=== PATIENT | female | born 1970 | race African-American/Black ===

== ENCOUNTER 2019-03-04 19:37 | Emergency (ER) | payer OTHER, MEDICAID ==
[~2019-03-04] VITALS: Ht 165.1 cm; Wt 68.0 kg
[2019-03-04 19:58] VITALS: BP 199/95
--- NOTE | 2019-03-04 19:59 | NUR ---
ER Nurse Note: Pt came from home c/o nose bleed for 3 days. Pt stated no trauma to nose, acute onset. Last nose bleed at 1430, saturated 1 tissue. Currently not bleeding from nose, VSS, no signs of distress. Will endorse to primary RN.
[2019-03-04] MEDS ORDERED: BACITRACIN15 GM TOPIC (20:26)
[2019-03-04 20:30] VITALS: BP 199/95
[2019-03-04] MEDS ORDERED: Bacitracin Oint UD TOPIC ONE (20:30)
--- NOTE | 2019-03-04 20:30 | NUR ---
ED Nurse Note:ER DISCHARGE NOTE: Patient is cleared to be discharged per ERMD, pt is aox4, on room air, with stable vital signs. pt was given dc and prescription instructions, pt was able to verbalize understanding, pt id band removed without complications. pt is able to ambulate with steady gait. pt took all belongings.
--- NOTE | 2019-03-04 22:01 | Emergency Room Report ---
History of Present Illness General Chief Complaint: Nosebleed Source: Patient Present Illness HPI 48-year-old female presents ED for evaluation. Patient presenting for evaluation of nosebleed. States she had nosebleed yesterday and 2 episodes today. States they resolved on their own after applying some pressure. Denies any active bleeding. Denies any pain. Did not take any blood thinners. No other aggravating relieving factors. Denies any other associated symptoms Allergies: Coded Allergies: No Known Allergies (Unverified , 03/04/19) Patient History Past Medical History: none Past Surgical History: none Pertinent Family History: none Social History: Denies: smoking, alcohol use, drug use Last Menstrual Period: 2018 Now: No Immunizations: UTD Reviewed Nursing Documentation: PMH: Agreed; PSxH: Agreed Nursing Documentation-PMH Past Medical History: No Stated History Review of Systems All Other Systems: negative except mentioned in HPI Physical Exam Vital Signs Date Time Temp Pulse Resp B/P (MAP) Pulse Ox O2 Delivery O2 Flow Rate FiO2 03/04/19 19:50 97.5 85 18 199/95 (129) 98 Room Air Sp02 EP Interpretation: reviewed, normal General Appearance: no apparent distress, alert, GCS 15, non-toxic Head: normocephalic Eyes: bilateral eye normal inspection, bilateral eye PERRL ENT: hearing grossly normal, normal pharynx, no angioedema, normal voice, other - dried blood anterior nares. no active bleeding Neck: normal inspection Respiratory: normal inspection Cardiovascular #1: normal inspection Gastrointestinal: normal inspection Rectal: deferred Genitourinary: no CVA tenderness Musculoskeletal: normal inspection Neurologic: alert, oriented x3, responsive, motor strength/tone normal, sensory intact, speech normal Psychiatric: normal inspection Skin: normal inspection Lymphatic: normal inspection Medical Decision Making Diagnostic Impression: Primary Impression: Epistaxis ER Course 48 yo F presents with nose bleed x 2 days Differential-anterior epistaxis, posterior epistaxis, coagulopathy Patient placed on stretcher. After initial history, physical exam reveals middle aged female in no acute distress. dried blood in bilateral anterior nares. No active bleeding. Discussed findings with patient. Patient can be safely discharged home. Bacitracin applied in both nostrils. Will provide ENT referrals. Diagnoses-epistaxis Stable and discharged to home with prescription for bacitacin. Followup with ENT. Return to ED if symptoms recur or worsen Last Vital Signs Date Time Temp Pulse Resp B/P (MAP) Pulse Ox O2 Delivery O2 Flow Rate FiO2 03/04/19 20:30 97.5 84 18 199/95 98 Room Air Status: improved Disposition: HOME, SELF-CARE Condition: Stable Scripts Bacitracin (Bacitracin) 28.4 Gm Oint...g. 1 APPLIC TOPIC THREE TIMES A DAY, #28.4 GM Prov: Jordan Vivar MD 03/04/19 Referrals: Al Peguero MD Patient Instructions: Nosebleed, [id number] Jordan Vivar MD Mar 04, 2019 22:00
== END 2019-03-04 20:30 | disposition home or self-care (01) ==
LOC: EMR 20:00
DX: R04.0 Epistaxis (principal)
CPT/HCPCS: 99282

== ENCOUNTER 2019-11-12 14:29 | Emergency (ER) | payer MEDICAID, OTHER ==
[~2019-11-12] VITALS: Ht 162.6 cm; Wt 97.5 kg
[~2019-11-12 14:29] MED LIST: BACITRACIN15 GM TOPIC
[2019-11-12 14:43] VITALS: BP 187/123
--- NOTE | 2019-11-12 14:44 | NUR ---
ED Nurse Note: Patient walked in to ER from home due to high blood pressure and headache 04/17. pt did not take hypertensive medication for 2 weeks and blood pressure has been over 200mmHg since then. pt aao x4 and ambulatory. skin clean and intact. calm and cooperative. pt denied chest pain but headache present. vital signs stable except blood pressure. 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
--- NOTE | 2019-11-12 14:51 | NUR ---
6ED Nurse Note: ERMD at bedside.
[2019-11-12] MEDS ORDERED: Metoclopramide 10mg/10ml Liq NG ONE (15:00)
[2019-11-12] MEDS: DiphenhydrAMINE 50mg/ml Inj IVP ONE ×2 (15:11→15:22)
[2019-11-12] MEDS ORDERED: Metoclopramide 10mg/2ml Inj IVP ONE (15:15)
--- NOTE | 2019-11-12 15:15 | NUR ---
ED Nurse Note: confirmed with DR Breen Regefra 10mg is IVP not NG. medication returned to pharmacy.
--- NOTE | 2019-11-12 15:22 | NUR ---
ED Nurse Note: pt refused Benadryl. ERMD made aware.
--- NOTE | 2019-11-12 15:26 | Emergency Room Report ---
History of Present Illness General Chief Complaint: Hypertension Source: Patient Present Illness HPI The patient presents with hypertension, headache and chest pressure with nausea. She has been undergoing a lot of stress recently. She has been unable to see her doctor. 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 She takes lisinopril 20 mg. Apparently she has not taken it for 3 months. She lost her job 5 years ago. During that time she is gained 40 to 50 pounds and decreased the regular exercise. Headache is rated 7/ 10. It is pounding and occipital without radiation. There is no visual changes. She has been experiencing nausea today also without vomiting but almost vomited. She feels some mild chest pressure on rates this must less intense than the headache. Before she gained the weight and had stress she was able to come off of blood pressure medication completely. There is a family history of hypertension. She states that she occasionally has edema. She denies any calf pain. No fevers, chills, sore throat, palpitations, vomiting, diarrhea, dysuria, abdominal pain, shortness of breath, joint pain, rashes, visual changes, dizziness. Allergies: Coded Allergies: No Known Allergies (Unverified , 03/04/19) Patient History Past Medical History: see triage record Social History: Denies: smoking Social History Narrative Looking for a job at this time Last Menstrual Period: NA Reviewed Nursing Documentation: PMH: Agreed; PSxH: Agreed Nursing Documentation-PM Past Medical History: No History, Except For Hx Hypertension: Yes Review of Systems All Other Systems: negative except mentioned in HPI Physical Exam Vital Signs Date Time Temp Pulse Resp B/P (MAP) Pulse Ox O2 Delivery O2 Flow Rate FiO2 11/12/19 14:32 98.1 95 16 207/94 (131) 97 Room Air Sp02 EP Interpretation: reviewed, normal General Appearance: well appearing, no apparent distress, GCS 15 Head: normocephalic Eyes: bilateral eye normal inspection, bilateral eye PERRL, bilateral eye EOMI ENT: moist mucus membranes Neck: supple Respiratory: lungs clear, normal breath sounds Cardiovascular #1: regular rate, rhythm, no edema Cardiovascular #2: 2+ radial (R) Gastrointestinal: normal inspection, normal bowel sounds, non tender, no mass, non-distended Musculoskeletal: back normal, normal range of motion, gait/station normal Neurologic: alert, motor strength/tone normal, blood bank laboratory technician III-XII nml as tested, oriented x3, sensory intact, cerebellar normal, speech normal Psychiatric: mood/affect normal Skin: no rash, warm/dry Medical Decision Making Diagnostic Impression: Primary Impression: Hypertension Qualified Codes: I10 - Essential (primary) hypertension Additional Impressions: Stress Hypokalemia ER Course Patient presents with high blood pressure, headache and chest pressure with nausea. Differential includes hypertensive urgency, malignant hypertension, stress, migraine, viral syndrome, acute myocardial infarction, angina, renal failure, electrolyte imbalance amongst others. Evaluation with EKG, chest x- ray and labs. The patient will be treated with Reglan and Benadryl and blood pressure repeated. EKG is sinus rhythm with possible left atrial enlargement. Rate 64. Chest x- ray unremarkable. Labs with low potassium. Normal renal function. Normal troponin. Headache resolved after Reglan. Blood pressure slightly elevated but not critically high with treatment of pain and observation. Discussed results and treatment plan with patient. Plan to reduce dose of lisinopril and add Dyazide. No medical emergency at this time. Patient stable for outpatient observation and treatment. Laboratory Tests Test 11/12/19 15:00 11/12/19 16:00 White Blood Count 5.1 K/UL (4.8-10.8) Red Blood Count 4.35 M/UL (4.20-5.40) Hemoglobin 11.4 G/DL (12.0-16.0) L Hematocrit 34.6 % (37.0-47.0) L Mean Corpuscular Volume 80 FL (80-99) Mean Corpuscular Hemoglobin 26.3 PG (27.0-31.0) L Mean Corpuscular Hemoglobin Concent 33.0 G/DL (32.0-36.0) Red Cell Distribution Width 13.8 % (11.6-14.8) Platelet Count 303 K/UL (150-450) Mean Platelet Volume 8.4 FL (6.5-10.1) Neutrophils (%) (Auto) 47.4 % (45.0-75.0) Lymphocytes (%) (Auto) 42.6 % (20.0-45.0) Monocytes (%) (Auto) 6.5 % (1.0-10.0) Eosinophils (%) (Auto) 2.2 % (0.0-3.0) Basophils (%) (Auto) 1.3 % (0.0-2.0) Prothrombin Time 10.8 SEC (9.30-11.50) Prothrombin Time INR 1.0 (0.9-1.1) Activated Partial Thromboplast Time 28 SEC (23-33) Sodium Level 142 MMOL/L (136-145) Potassium Level 3.3 MMOL/L (3.5-5.1) L Chloride Level 105 MMOL/L (98-107) Carbon Dioxide Level 24 MMOL/L (21-32) Anion Gap 13 mmol/L (5-15) Blood Urea Nitrogen 8 mg/dL (7-18) Creatinine 1.0 MG/DL (0.55-1.30) Estimate Glomerular Filtration Rate > 60 mL/min (>60) Glucose Level 88 MG/DL (74-106) Calcium Level 9.3 MG/DL (8.5-10.1) Total Bilirubin 0.4 MG/DL (0.2-1.0) Aspartate Amino Transferase (AST) 21 U/L (15-37) Alanine Aminotransferase (ALT) 35 U/L (12-78) Alkaline Phosphatase 105 U/L (46-116) Total Creatine Kinase 216 U/L (26-308) Troponin I 0.000 ng/mL (0.000-0.056) Pro-B-Type Natriuretic Peptide 118 pg/mL (0-125) Total Protein 7.3 G/DL (6.4-8.2) Albumin 3.7 G/DL (3.4-5.0) Globulin 3.6 g/dL Albumin/Globulin Ratio 1.0 (1.0-2.7) Urine Color Pale yellow Urine Appearance Clear Urine pH 7 (4.5-8.0) Urine Specific [place] 1.010 (1.005-1.035) Urine Protein Negative (NEGATIVE) Urine Glucose (UA) Negative (NEGATIVE) Urine Ketones Negative (NEGATIVE) Urine Blood Negative (NEGATIVE) Urine Nitrite Negative (NEGATIVE) Urine Bilirubin Negative (NEGATIVE) Urine Urobilinogen Normal MG/DL (0.0-1.0) Urine Leukocyte Esterase 2+ (NEGATIVE) H Urine RBC 0-2 /HPF (0 - 2) Urine WBC 2-4 /HPF (0 - 2) Urine Squamous Epithelial Cells Few /LPF (NONE/OCC) Urine Bacteria Few /HPF (NONE) EKG Diagnostic Results Rate: normal Rhythm: NSR ST Segments: no acute changes Rhythm Strip Diag. Results EP Interpretation: yes Rhythm: NSR, no PVC's, no ectopy Chest X-Ray Diagnostic Results Chest X-Ray Diagnostic Results : Chest X-Ray Ordered: Yes # of Views/Limited/Complete: 1 View Indication: Other EP Interpretation: Yes Interpretation: no consolidation, no effusion, no pneumothorax Impression: No acute disease Electronically Signed by: Electronically signed by Donell Breen MD Last Vital Signs Date Time Temp Pulse Resp B/P (MAP) Pulse Ox O2 Delivery O2 Flow Rate FiO2 11/12/19 17:13 97.7 88 16 145/89 97 Room Air Status: improved Disposition: HOME, SELF-CARE Condition: Improved Scripts Triamterene/Hydrochlorothiazide* (DYAZIDE 37.5-25 MG TAB*) 1 Each Tablet 1 TAB ORAL DAILY, #30 TAB Prov: Donell Breen MD 11/12/19 Lisinopril* (PRINIVIL*) 10 Mg Tablet 10 MG ORAL DAILY, #30 TAB Prov: Donell Breen MD 11/12/19 Ondansetron Odt* (ZOFRAN ODT*) 4 Mg Tab.rapdis 4 MG BC EVERY 8 HOURS, #4 TAB 1 Refill Prov: Donell Breen MD 11/12/19 Acetaminophen (Tylenol) 325 Mg Tablet 650 MG ORAL Q6H PRN for Prn Pain/Headache/Temp > 101, #20 TAB 0 Refills Prov: Donell Breen MD 11/12/19 Donell Breen MD Nov 12, 2019 15:26
[2019-11-12 15:42] LABS: BASOPHILS % (AUTO) 1.3 % (0.0-2.0); EOSINOPHILS % (AUTO) 2.2 % (0.0-3.0); HEMATOCRIT 34.6 % (37.0-47.0); HEMOGLOBIN 11.4 G/DL (12.0-16.0); LYMPHOCYTES % (AUTO) 42.6 % (20.0-45.0); MEAN CORPUSCULAR VOLUME 80 FL (80-99); MONOCYTES % (AUTO) 6.5 % (1.0-10.0); NEUTROPHILS % (AUTO) 47.4 % (45.0-75.0); PLATELET COUNT 303 K/UL (150-450); RED BLOOD COUNT 4.35 M/UL (4.20-5.40); RED CELL DISTRIBUTION WIDTH 13.8 % (11.6-14.8); WHITE BLOOD COUNT 5.1 K/UL (4.8-10.8)
[2019-11-12 15:44] LABS: ANION GAP 13 mmol/L (5-15); BLOOD UREA NITROGEN 8 mg/dL (7-18); CALCIUM 9.3 MG/DL (8.5-10.1); CARBON DIOXIDE 24 MMOL/L (21-32); CHLORIDE 105 MMOL/L (98-107); POTASSIUM 3.3 MMOL/L (3.5-5.1); SODIUM 142 MMOL/L (136-145)
[2019-11-12 15:55] LABS: ALANINE AMINOTRANSFERASE 35 U/L (12-78); ALBUMIN 3.7 G/DL (3.4-5.0); ALKALINE PHOSPHATASE 105 U/L (46-116); ASPARTATE AMINO TRANSFERASE 21 U/L (15-37); BILIRUBIN,TOTAL 0.4 MG/DL (0.2-1.0); CREATINE KINASE 216 U/L (26-308)
[2019-11-12 16:21] LABS: APPEARANCE,URINE CLEAR; BILIRUBIN, URINE NEGATIVE (NEGATIVE); COLOR,URINE PALE YELLOW; GLUCOSE, URINE (UA) NEGATIVE (NEGATIVE); KETONES,URINE NEGATIVE (NEGATIVE); LEUKOCYTE ESTERASE ,URINE 2+ (NEGATIVE); NITRITE,URINE NEGATIVE (NEGATIVE); PH,URINE 7 (4.5-8.0); PROTEIN,URINE NEGATIVE (NEGATIVE); UROBILINOGEN,URINE NORMAL MG/DL (0.0-1.0)
--- NOTE | 2019-11-12 16:39 | Diagnostic Imaging Report ---
Indication: Chest Technique: One view of the chest Comparison: none Findings: Lungs and pleural spaces are clear. Heart size is normal. Impression: No acute process
[2019-11-12] MEDS ORDERED: TYLENOL325 MG ORAL (16:44)
[2019-11-12] MEDS ORDERED: ONDANSETRON ODT4 MG BC (16:44)
--- NOTE | 2019-11-12 16:54 | NUR ---
ED Nurse Note: Pt cleared by health care Provider for discharge. DC instructions/prescription was given and explained to pt and verbalized understanding of teachings. All medical deviecs such as ID band removed. Pt is AAO x4, ambulatory and left with all personal belongings.
[2019-11-12] MEDS ORDERED: PRINIVIL10 MG ORAL (17:01)
[2019-11-12] MEDS ORDERED: TRIAMTERENE-HC1 EAC5 ORAL (17:01)
[2019-11-12 17:13] VITALS: BP 145/89
== END 2019-11-12 16:54 | disposition home or self-care (01) ==
LOC: EMR 15:29
DX: I10 Essential (primary) hypertension (principal); F43.9 Reaction to severe stress, unspecified; E87.6 Hypokalemia
CPT/HCPCS: 36415; 71045; 80053; 81003; 82550; 83880; 84484; 85025; 85610; 85730; 93005; 96374; J2765; Z7502; 99284